=== PATIENT | female | born 1995 ===

== ENCOUNTER 2017-08-07 18:15 | Inpatient (IN) | payer OTHER ==
[2017-08-07 19:06] LABS: BASO % 0.3 % (0.0-2.0); EOS # 0.1 K/uL (0.0-0.7); EOS % 0.6 % (0.0-4.0); HEMOGLOBIN 11.4 g/dL (11.0-16.0); LYMPH # 2.8 K/uL (1.0-4.3); LYMPH % 30.9 % (20.0-40.0); MEAN CELL VOLUME 87.2 fL (81.0-99.0); MEAN CORPUSCULAR HEMOGLOBIN 29.3 pg (27.0-31.0); MEAN CORPUSCULAR HGB CONC 33.6 g/dL (33.0-37.0); MEAN PLATELET VOLUME 10.5 fL (7.2-11.7); MONO # 0.6 K/uL (0.0-0.8); MONO % 6.9 % (0.0-10.0); NEUT # 5.5 K/uL (1.8-7.0); NEUT % 61.3 % (50.0-75.0); NRBC % 0.1 % (0.0-2.0); RBC 3.87 Mil/uL (3.80-5.20); RED CELL DISTRIBUTION WIDTH 13.3 % (11.5-14.5); WHITE BLOOD COUNT 8.9 K/uL (4.8-10.8)
[2017-08-07 19:14] LABS: SQUAMOUS EPITHIAL 12 /hpf (0-5); URINE BACTERIA FEW (<OCC); URINE BILIRUBIN NEGATIVE (NEGATIVE); URINE BLOOD NEGATIVE (NEGATIVE); URINE CLARITY Hazy (Clear); URINE COLOR Yellow (YELLOW); URINE GLUCOSE (UA) NORMAL (Normal); URINE LEUKOCYTE ESTERASE 3+ Leu/uL (Negative); URINE NITRATE NEGATIVE (NEGATIVE); URINE PROTEIN NEGATIVE (NEGATIVE)
[2017-08-07 19:18] LABS: ALBUMIN 3.4 g/dL (3.5-5.0); ALT/SGPT 20 U/L (9-52); AST/SGOT 20 U/L (14-36); BLOOD UREA NITROGEN 6 mg/dL (7-17); CALCIUM 8.6 mg/dl (8.6-10.4); GFR AFRICAN-AMERICAN > 60; GFR NON-AFRICAN AMERICAN > 60
[2017-08-07 19:20] LABS: ALB/GLOB RATIO 0.9 (1.0-2.1)
--- NOTE | 2017-08-07 19:48 | OBADHP ---
Datetime: 08/07/2017 18:46 Admit Comment, IP Provider: Patient is a 22 year old at 40w6d CIRILO 08/01/17 by LMP (10/25/16) cons istent with 8w3d US presents to L+D for induction of labor. Patient goes to [facility] for care, last visit was Tuesday08/05/17. Offers no complaints at this time. Endorses +FM, denies CTX, VB, LOF. Issues: Rh negative - s/p rhogam on 06/02/17 RPR positive - Recieved Bicillin injections x 3; RPR Titers 1:8 -> 1:2 -> 1:2 OB Hx: 1. Current [employer] Hx: LMP 10/25/16 [facility] - 13/regular/4-5 days Denies Hx of fibroids, ovarian cysts Hx of Syphillis with this - treated Allergies: NKDA Medications: PNV Medical Hx: Denies Surgical Hx: Denies Social Hx: Denies alcohol, drug use, smoked cigarettes prior to ; lives with mother, not with FOB, not employed Family Hx: Father - Seizure d/o, Mother - HTN, Maternal Grandmother - Pancreatic cancer PE: See above A/P: 22 year old at 40w6d presents for induction of labor -Stable, afebrile -CEFM and TOCO -LR @ 125cc/hr -CBC, CMP, RPR, T+S, UA ordered -GBS negative, no abx needed at this time -Cervidil for cervical rippening agent -Anesthesia consult for pain control prn -Anticipate vaginal delivery -Plan discussed with attending Ginny Fitzgerald DO PGY-1 agree iwth above, pt seen adn examined Bedside sonogram VTX Cervidil placed 19:45 IOL process discuassed iwth patietn at lenght, all questins answerd FHR - Baseline A Provider: 130 Contraction Comments Provider: Occasional Comments, ACOG Physical Exam: VSS Gen: AAOx3 CV: RRR Lungs: CTA B/L Abd: Soft, gravid Ext: No clubbing, cyanosis, edema SVE: fingertip/long/high IP Hx Assessment: The History has been Reviewed and is Current Vital Signs Provider: Reviewed IP Chief Complaint: Scheduled induction of labor NICHD Variability Prov Fetus A: Moderate 6-25bpm NICHD Accel Fetus A IP Provider: 15X15 FHR Category Provider Fetus A: Category I NICHD Decel Fetus A IP Provider: None Dilatation, Provider: 0 Effacement, Provider: 0 Station, Provider: -3 EGA AdmitDate IP: 40.6 IP Adm Impression: Term, intrauterine IP Admit Plan: Admit to unit
[2017-08-08] MEDS: Lactated Ringer's 1,000 ML IV SCH ×3 (02:32→08:42)
[2017-08-08] MEDS ORDERED: Nalbuphine 20 mg/ml Inj (1 ml) ONE (02:43)
[2017-08-08] MEDS ORDERED: Nalbuphine 20 mg/ml Inj (1 ml) IVP PRN (02:45)
[2017-08-08] MEDS ORDERED: Oxytocin 30 UNIT 30 UNITS/500 ML BAG IV SCH (07:15)
--- NOTE | 2017-08-08 07:16 | OBPN ---
Datetime: 08/08/2017 07:14 IP Progress Plan Other: cervidil removed IP Progress Impression: Normal progression of labor IP Procedures: Sterile Vag Exam Contraction Comments Provider: irrg FHR - Baseline A Provider: 120 IP Progress Note Comment: pt was examined at bed side v 2-3/70/-2 cervidil remved start pitocin anticipate Vital Signs Provider: Reviewed; Within Normal Limits NICHD Accel Fetus A IP Provider: 15X15 FHR Category Provider Fetus A: Category I NICHD Variability Prov Fetus A: Moderate 6-25bpm Dilatation, Provider: 3 Effacement, Provider: 70 Station, Provider: -2 Datetime: 08/07/2017 18:46 Membranes, Provider: Intact (Annotations: Data stored by CPN on behalf of user) NICHD Decel Fetus A IP Provider: None
[2017-08-08] MEDS ORDERED: Fentanyl/Bupivacaine HCl 250 ML EPI ONE (07:22)
[2017-08-08] MEDS ORDERED: Oxytocin 30 UNIT 30 UNITS/500 ML BAG IV ONE (08:29)
--- NOTE | 2017-08-08 10:56 | OBPN ---
Datetime: 08/08/2017 10:53 IP Procedures: Artificial ROM; Sterile Vag Exam IP Progress Plan: Continue present management Contraction Comments Provider: irrg FHR - Baseline A Provider: 120 IP Progress Note Comment: ptwas examined at bed side ve 3-4/70/-2 arom clear cont ptocin anticipste NICHD Accel Fetus A IP Provider: 15X15 FHR Category Provider Fetus A: Category I NICHD Variability Prov Fetus A: Moderate 6-25bpm Dilatation, Provider: 4 Effacement, Provider: 70 Station, Provider: -2
[2017-08-08] MEDS ORDERED: Dextrose 5%/Lactated Ringer's 1,000 ML IV SCH (11:00)
[2017-08-08 12:23] LABS: RAPID PLASMA REAGIN REACTIVE (NONREACTIVE)
[2017-08-08] MEDS ORDERED: Lidocaine 2% Inj (20ml) ONE (14:05)
[2017-08-08] MEDS ORDERED: Oxycodone/Acetaminophen 5/325 mg Tab PO PRN ×2 (16:01)
[2017-08-08] MEDS ORDERED: Benzocaine/Menthol 20%-0.5% Topical Spray (60 ml) TOP PRN (16:01)
--- NOTE | 2017-08-08 16:01 | OBPN ---
Datetime: 08/08/2017 15:58 IP Progress Impression: Normal progression of labor IP Procedures: Sterile Vag Exam IP Progress Plan: Continue present management FHR - Baseline A Provider: 130 IP Progress Note Comment: pt was examined at bed side ve fd/100/0 will start pushing anticipate NICHD Accel Fetus A IP Provider: 15X15 FHR Category Provider Fetus A: Category I NICHD Variability Prov Fetus A: Moderate 6-25bpm Dilatation, Provider: 10 Effacement, Provider: 100 Station, Provider: 0 Datetime: 08/08/2017 14:35 IP Informed Consent Obtain: Vaginal Delivery
[2017-08-09 08:44] LABS: MEAN PLATELET VOLUME 11.7 fL (7.2-11.7)
[2017-08-09 08:48] LABS: HEMOGLOBIN 10.6 g/dL (11.0-16.0); MEAN CELL VOLUME 87.1 fL (81.0-99.0); MEAN CORPUSCULAR HEMOGLOBIN 29.3 pg (27.0-31.0); MEAN CORPUSCULAR HGB CONC 33.6 g/dL (33.0-37.0); RBC 3.6 Mil/uL (3.80-5.20); RED CELL DISTRIBUTION WIDTH 13.2 % (11.5-14.5)
[2017-08-09 08:53] LABS: WHITE BLOOD COUNT 14.5 K/uL (4.8-10.8)
--- NOTE | 2017-08-09 09:41 | OBDS ---
MATERNAL INFORMATION Provider Comments: bay deliverd in patricio endometrium clean no com LABOR SUMMARY EDC: 08/01/2017 00:00 No. Babies in Womb: 1 Labor Anesthesia: Epidural LABOR INFORMATION Onset of Labor: 08/08/2017 12:26 Complete Dilatation: 08/08/2017 15:18 Cervical Ripening Agents: Cervidil (Annotations: cervidil pulled by Dr Pagan) Oxytocin: Augmentation Group B Beta Strep: Negative Steroids Given: None Reason Steroids Not Administered: Not Applicable MEMBRANES Membranes Rupture Method: Artificial Amniotic Fluid Color: Bloody Amniotic Fluid Amount: Small Amniotic Fluid Odor: None STAGES OF LABOR Stage 1 hrs: 2 Stage 1 min: 52 Stage 2 hrs: 1 Stage 2 min: 19 Stage 3 hrs: 0 Stage 3 min: 5 Total Time in Labor hrs: 4 Total Time in Labor min: 16 VAGINAL DELIVERY Episiotomy: None Laceration Extension: First Degree Laceration Type: Periurethral Laceration Repair: Yes Laceration Repair Note: reapwired 3 chromic Initial Vag Sponge Count: 11 Final Vag Sponge Count: 11 Initial Vag Sharps Count: 1 Final Vag Sharps Count: 1 Sponge Count Correct: Yes; Vaginal Sweep Performed Sharps Count Correct: Yes BABY A INFORMATION Infant Delivery Date/Time: 08/08/2017 16:37 Method of Delivery: Vaginal Born in Route : No : N/A Forceps: N/A Vacuum Extraction: N/A Shoulder Dystocia : No SHOULDER DYSTOCIA BABY A Delivery Date/Time: 08/08/2017 16:37 PRESENTATION/POSITION BABY A Presentation: Cephalic Cephalic Presentation: Vertex Vertex Position: Right Occipital Anterior Breech Presentation: N/A PLACENTA INFORMATION BABY A Placenta Delivery Time : 08/08/2017 16:42 Placenta Method of Delivery: Expressed Placenta Status: Delivered SCORES BABY A Heart Rate 1 min: >100 bpm Resp Effort 1 min: Good Cry Reflex Irritability 1 min: Cough or Sneeze or Pulls Away Muscle Tone 1 min: Active Motion Color 1 min: Body [place], Extremities Blue Resuscitation Effort 1 min: Tactile Stimulation SCORE 1 MIN: 9 Heart Rate 5 min: >100 bpm Resp Effort 5 min: Good Cry Reflex Irritability 5 min: Cough or Sneeze or Pulls Away Muscle Tone 5 min: Active Motion Color 5 min: Body [place], Extremities Blue Resuscitation Effort 5 min: N/A SCORE 5 MIN: 9 INFANT INFORMATION BABY A Gestational Age at Delivery: 41.0 Gestational Status: Term Infant Outcome : Liveborn Condition : Stable Infant Sex: Male IDENTIFICATION/MEDS BABY A ID Band Number: [id number] Sensor Number: [id number] WEIGHT/LENGTH BABY A Infant Birthweight (gms): 3450 Weight (lb): 7 Weight (oz): 10 Infant Length Inches: 20.00 Infant Length cms: 50.8 CORD INFORMATION BABY A No. Cord Vessels: 3 Nuchal Cord : Around Neck x1, Loose Cord Blood Taken: Yes Infant Suction: Mouth; Nose ASSESSMENT BABY A Infant Complications: None Physical Findings at Delivery: Molding of the Head; D[place]hi Spots Physical Findings Other: thai spot-faint Infant Respirations: Appears Normal Traffic Control Signaler/ALS Called : No Care By: Pippa Barajas Transferred To: Remains with Mother
--- NOTE | 2017-08-09 16:43 | OBPPN ---
Datetime: 08/09/2017 06:54 PP Pain Prov: Within normal limits PP Nausea Prov: Denies PP Flatus Prov: Yes PP BM Prov: No PP Heart Prov: Normal PP Lungs Prov: Normal PP Abdomen/Uterus Prov: Normal PP Lochia Prov: Normal PP Extremities Prov: Normal PP Comments Phys Exam Prov: Abdomen: Soft, non-tender, + Bowel sounds, uterus is firm and slightly b elow the umbilicus PP Impression Prov: Normal progression PP Plan Prov: Continue present management PP Progress Note Prov: Patient was seen and examined at bedside. Patient reports that she is doing w ell and pain is well-controlled. Patient reports mild lochia, urinating without difficulty, passing f latus. Patient is tolerating diet and ambulating. Patient denies fever, chills, nausea, vomiting, bow el movement. Patient is breast feeding and bottle feeding Labs: 8.9>11.4/33.8<107, 14.5>10.6/31.4<92 O-, rubella immune VS: F/u am VS Physical Examination: Gen: NAD Cardio: RRR, normal S1, S2 Breast: Engorged, no cracks Pulm: CTA bilaterally Abdomen: Soft, non-tender, +bowel sounds, uterus is firm and slightly below the umbilicus Ext: No edema, no clubbing and no cyanosis A/P: 22 year old at 40 weeks and 6 day who is s/p with periurtheral PPD #1 1. Stable, Afebrile 2. Pain is well-control: Motrin and percocet 3. Encourage hydration and ambulation 4. Encourage breast feeding 5. O-, Rhogam given at 28 weeks and Rhogam schedueled for today, 08/09/2017 6. Male : undeecided on circumcision 7. Continue post- management 8. Plans discussed with attending Nick Sahni DO, PGY-1 patient examined.agree with resident exam, assessment and plan IP PP Procedures: None
[2017-08-10 08:27] LABS: BASO % 0.3 % (0.0-2.0); EOS # 0.2 K/uL (0.0-0.7); EOS % 1.7 % (0.0-4.0); HEMOGLOBIN 10.4 g/dL (11.0-16.0); LYMPH # 2.5 K/uL (1.0-4.3); LYMPH % 21.9 % (20.0-40.0); MEAN CORPUSCULAR HEMOGLOBIN 29.9 pg (27.0-31.0); MEAN CORPUSCULAR HGB CONC 34.4 g/dL (33.0-37.0); MEAN PLATELET VOLUME 11.9 fL (7.2-11.7); MONO # 0.6 K/uL (0.0-0.8); MONO % 5.1 % (0.0-10.0); NEUT # 8.1 K/uL (1.8-7.0); RBC 3.49 Mil/uL (3.80-5.20); RED CELL DISTRIBUTION WIDTH 13.7 % (11.5-14.5); WHITE BLOOD COUNT 11.4 K/uL (4.8-10.8)
[2017-08-10 11:41] VITALS: PULSE 68; RESP 18; TEMP 97.7; O2SAT 99
[2017-08-10] MEDS ORDERED: Influenza Vaccine 60 mcg/0.5 mL SYR (4YR UP) IM ONE (11:41)
--- NOTE | 2017-08-10 12:09 | OBPPN ---
Datetime: 08/10/2017 06:53 PP Nausea Prov: Denies PP Flatus Prov: Yes PP Abdomen/Uterus Prov: Normal PP Lochia Prov: Normal PP Extremities Prov: Normal PP Comments Phys Exam Prov: fudus below um ext no edema,no calf ten PP Impression Prov: Normal progression PP Plan Prov: Discharge PP Progress Note Prov: Patient was seen and examined at bedside. Patient reports that she is doing w ell and pain is well-controlled. Patient reports very mild lochia, urinating without difficulty, pass ing flatus. Patient is tolerating diet and ambulating. Patient denies fever, chills, nausea, vomiting , bowel movement. Patient is breast feeding and bottle feeding Labs: 8.9>11.4/33.8<107, 14.5>10.6/31.4<92, f/u am CBC O-, rubella immune VS: BP: 113/85, HR:82, Temp: 97.0 Physical Examination: Gen: NAD Cardio: RRR, normal S1, S2 Breast: Engorged, nipples are intact Pulm: CTA bilaterally Abdomen: Soft, non-tender, +bowel sounds, uterus is firm and slightly below the umbilicus Ext: No edema, no clubbing and no cyanosis A/P: 22 year old at 40 weeks and 6 day who is s/p with periurtheral PPD #2 1. Stable, Afebrile 2. Pain is well-control: Motrin and percocet 3. Encourage hydration and ambulation 4. Encourage breast feeding 5. O-, Rhogam given at 28 weeks and Rhogam given 08/09/2017 6. Male : decided no circumcision 7. Discharge home today: Pelvic rest and nothing per vaging for 6 weeks, f/u up with Dr. Kay in 1-2 weeks as planned, continue hydration and ambulation, contine vitamins. Please return to the hospital with symptoms of fever, abnormal vaginal discharge, excessive vaginal bleeding, OTC motr in for pain control 8. Plans discussed with attending Nick Sahni DO, PGY-1 Vital Signs Provider PP: Reviewed; Within Normal Limits
--- NOTE | 2017-08-10 12:09 | OBDCSUM ---
Datetime: 08/10/2017 07:00 Discharged to, Provider: Home Follow up at, Provider: Dr. Kay Disch Instr Activity: Normal activity; May be up to bathroom; May be up for meals; May Shower Disch Instr Diet: Regular Discharge Instructions, Provider: Routine instructions given Discharge Diagnosis, Provider: Term Delivered Discharge Time: 08/10/2017 11:50 Follow up in weeks, Provider: 1-2 weeks, 08/17/17 Disch Referrals: None Contraception discussed, Prov: Yes Disch Activity Restrictions: No sexual activity; Nothing in vagina - [place], tampons, douche Discharge Comment, Provider: Pelvic rest and nothing per vaging for 6 weeks f/u up with Dr. Kay in 1-2 weeks as planned continue hydration and ambulation, contine vitamins. Please return to the hospital with symptoms of fever, abnormal vaginal discharge, excessive vagina l bleeding, OTC motrin for pain control Discharge Diagnosis Prov Other: at 40 weeks and 6 days Contraception after Delivery: Undecided
[2017-08-10 20:50] VITALS: BP 110/79
== END 2017-08-10 12:50 | disposition home or self-care (01) | DRG 372 ==
LOC: C.EROB 18:15 → C.4D 18:42 → EEVIPCON 18:42 → C.4M 08-08 18:25
PROVIDERS: ADMIT Obstetrics & Gynecology; ATTEND Obstetrics & Gynecology
PROC: 10E0XZZ Delivery of Products of Conception, External Approach (ICD-10-PCS; principal; 2017-08-07)
PROC: 0HQ9XZZ Repair Perineum Skin, External Approach (ICD-10-PCS; 2017-08-07)
DX: O69.81X0 Labor and delivery complicated by cord around neck, without compression, not applicable or unspecified (principal); O98.12 Syphilis complicating childbirth; O70.0 First degree perineal laceration during delivery; Z3A.40 40 weeks gestation of pregnancy; Z37.0 Single live birth